=== PATIENT | female | born 1950 | race American Indian/Alaskan Native ===

== ENCOUNTER 2021-12-22 11:46 | Emergency (ER) | payer MEDICARE ==
--- NOTE | 2021-12-22 12:18 | Event Note ---
ED Screening Note Date of service: 12/22/21 Time: 12:17 ED Screening Note: This initial assessment/diagnostic orders/clinical plan/treatment(s) is/are subject to change based on patients health status, clinical progression and re- assessment by fellow clinical providers in the ED. Further treatment and workup at subsequent clinical providers discretion. Patient/guardian urged not to elope from the ED as their condition may be serious if not clinically assessed and managed. Patient with reported NS fall with facial injury - no loc. Prior CVA. Initial orders include: My Active Orders 12/22/21 12:15 CT facial bones wo con Stat CT head/brain wo con Stat
--- NOTE | 2021-12-22 13:14 | Cat Scan Report ---
CT FACIAL BONES WITHOUT CONTRAST INDICATION : ns fall with facial injury. TECHNIQUE: Axial imaging performed through the face with reconstructed images also reviewed. Sagitta l and coronal reformatted images. All CT scans at this location are performed using CT dose reduction for ALARA by means of automated exposure control. COMPARISON: None FINDINGS: The orbital cavities, paranasal sinuses, nasal bones, zygomas and mandible are intact. The re is mild anterior subluxation at the left TMJ. Upper cervical spine and skull base are intact. Mild multilevel cervical spondylosis is noted. Facial soft tissues are unremarkable. There is poor dentit ion. IMPRESSION: No acute injury is detected on CT. Signer Name: Alex Gooden Jr, MD Signed: 12/22/2021 1:10 PM Workstation Name: [id number]
--- NOTE | 2021-12-22 13:17 | Cat Scan Report ---
CT head/brain wo con INDICATION / CLINICAL INFORMATION: 71 years Female; ns fall with facial injury. TECHNIQUE: Routine CT head without contrast. All CT scans at this location are performed using CT dos e reduction for ALARA by means of automated exposure control. COMPARISON: MRI-03/10/2014 FINDINGS: BRAIN / INTRACRANIAL CONTENTS: Small lacunar infarcts seen in the gangliocapsular regions. Most preva lent finding is in the anterior thalamus on the left. This finding is new from prior MRI. Otherwise, no acute hemorrhage, mass effect, midline shift, hydrocephalus, or acute, large territoria l infarct. Mild to moderate, diffuse cerebral and mild cerebellar atrophy. There are moderate, somewhat confluent areas of decreased attenuation in the white matter of the cere bral hemispheres. These are nonspecific findings and may be related to microangiopathy (hypertension, diabetes, atherosclerosis), given the patient's age. It might be difficult to evaluate for small are as of ischemia without diffusion imaging by MRI. Pontine disease noted. CRANIOCERVICAL JUNCTION: No significant abnormality. ORBITS: No significant abnormality of visualized orbits. SINUSES / MASTOIDS: Visualized paranasal sinuses and mastoid air cells are essentially clear. ADDITIONAL FINDINGS: Small exostosis associated with the left parietotemporal region-of no clinical s ignificance. Atherosclerotic disease is seen in the anterior and posterior circulation. Poor dentition noted. IMPRESSION: 1. No focal mass, hemorrhage, hydrocephalus, or acute, large territorial infarct. Follow-up with diff usion imaging by MRI, as clinically warranted. Signer Name: Ronnie Yanez MD, III Signed: 12/22/2021 1:12 PM Workstation Name: [id number]
[2021-12-22 22:51] VITALS: BP 134/61
== END 2021-12-22 12:55 | disposition left against medical advice (07) ==
LOC: ED 11:46
DX: J34.89 Other specified disorders of nose and nasal sinuses (principal); Z53.21 Procedure and treatment not carried out due to patient leaving prior to being seen by health care provider; W19.XXXA Unspecified fall, initial encounter; Y93.89 Activity, other specified; Y92.89 Other specified places as the place of occurrence of the external cause; Y99.8 Other external cause status
CPT/HCPCS: 70450; 70486